=== PATIENT | male | born 2000 | race African-American/Black ===

== ENCOUNTER 2020-12-14 19:09 | Emergency (ER) | payer OTHER | END 2020-12-14 21:25 | disposition home or self-care (01) | LOC: ED 19:09 | PROC: 0HQJXZZ Repair Left Upper Leg Skin, External Approach (ICD-10-PCS; principal; 2020-12-14) | DX: S71.122A Laceration with foreign body, left thigh, initial encounter (principal); W45.8XXA Other foreign body or object entering through skin, initial encounter; Y92.410 Unspecified street and highway as the place of occurrence of the external cause | CPT/HCPCS: 90471; 99283 ==